=== PATIENT | female | born 1970 | race Caucasian/White ===

== ENCOUNTER 2022-04-08 06:33 | Day surgery (SDC) | payer MEDICAID, SELFPAY ==
[2022-04-08] VITALS (11 sets, daily range): BP systolic 104–155; BP diastolic 64–101; PULSE 59–89; RESP 16–18; TEMP 36.2–36.6; O2SAT 96–100; BMI 37.3
[2022-04-08] MEDS: SODIUM CHLORIDE 0.9 % (FLUSH) 10 ML SYRINGE IVF (06:50)
[2022-04-08] MEDS: LACTATED RINGERS 1000 ML 1,000 ML 100 ML IV (06:51)
[2022-04-08] MEDS: CEFAZOLIN 2 GM INJ IVP (07:40)
[2022-04-08] MEDS: BUPIVACAINE 0.25% 30 ML INJECTION (08:22)
--- NOTE | 2022-04-08 08:35 | W.ANESCHARGE ---
Anesthesia Charges Start Date/Time Anesthesia Start Date: 04/08/22 Anesthesia Start Time: 07:33 Stop Date/Time Anesthesia Stop Date: 04/08/22 Anesthesia Stop Time: 08:33 Summary Emergency: No
--- NOTE | 2022-04-08 09:20 | W.ANESCHARGE ---
Anesthesia Charges Start Date/Time Anesthesia Start Date: 04/08/22 Anesthesia Start Time: 07:33 Stop Date/Time Anesthesia Stop Date: 04/08/22 Anesthesia Stop Time: 08:33 Summary Emergency: No
--- NOTE | 2022-04-08 09:49 | PM.ORPRC ---
Procedure Note Date of procedure: 04/08/22 Procedure: SURGEON: Huang Leung MD APPLIANCE LINE ASSEMBLER: WENDY Meade PREOPERATIVE DIAGNOSIS: Right knee medial meniscus tear POSTOPERATIVE DIAGNOSIS: Right knee medial meniscus tear NAME OF OPERATION: Right knee arthroscopic partial medial meniscectomy ANESTHESIA: Spinal ESTIMATED BLOOD LOSS: 0 mL COMPLICATIONS: None SPECIMENS: None DRAINS: None PREOPERATIVE ANTIBIOTICS: Ancef 2 gram INDICATIONS: The patient is a 51-year-old female with a history of right for knee medial pain. MRI scan is consistent with a medial meniscus tear. Despite appropriate nonoperative management, including activity modification, antiinflammatories, [id number] pain medication, bracing, physical therapy, and injections they continue to have pain and disability. Operative intervention was offered. The risks, benefits and expected outcomes were discussed in detail. These included but were not limited to: Infection, bleeding, injury to blood vessel or nerve, venous thromboembolism. All questions were answered to their satisfaction. PROCEDURE: Spinal anesthesia was administered. The patient was placed supine on the operating room table. The right lower extremity was prepped and draped in the usual sterile fashion. The limb was exsanguinated with the Eron bandage. The pneumatic tourniquet was inflated to 300 mmHg. A standard anterolateral portal was established. The arthroscope was introduced. The working portal was established anteromedially. Diagnostic arthroscopy was performed with findings as follows: The suprapatellar pouch is normal. Articular surface on the patella shows diffuse grade 2/3 change. Articular surface on the trochlea shows diffuse grade 3 change. The medial gutter is normal. The medial compartment shows diffuse grade 3 change on the medial femoral condyle, grade 2 change on the medial tibial plateau. The medial meniscus has a complex degenerative tear with a large unstable flap. The notch shows the ACL graft to be completely torn. The lateral compartment shows normal articular cartilage on the lateral femoral condyle and lateral tibial plateau. The lateral meniscus is normal. The lateral gutter is normal. The posterior horn and midbody of the medial meniscus was debrided to a stable base using a combination of baskets and sugar through both portals. Unstable chondral flaps on the medial femoral condyle were debrided with the shaver through both portals, taken to a stable base. Arthroscopic instruments were removed, the portal sites were Steri-Stripped closed, the knee was infiltrated with 30 mL of 0.25% Marcaine without epinephrine. A dry dressing was applied, the tourniquet was released. Sponge and needle counts were correct x 2. The patient tolerated the procedure well. There were no apparent complications. They were carefully transferred to the hospital bed and taken to the postanesthesia care unit in satisfactory condition. PLAN: The patient will be discharged to home. They may weightbear as tolerates. Range of motion will be unrestricted. They will follow up in the office next week for a wound check.
== END 2022-04-08 10:08 | disposition home or self-care (01) ==
PROVIDERS: PCP Family Medicine; Visit Provider Orthopaedic Surgery
PROC: (CPT 29870; principal; 2022-04-08 07:45)
DX: M23.221 Derangement of posterior horn of medial meniscus due to old tear or injury, right knee (principal)
CPT/HCPCS: 29881; 01400; J0690; J1100; J1885; J2250; J2400; J2405; J2704; J3010; J3490; J7120

== ENCOUNTER 2022-05-13 07:04 | Outpatient (CLI) | payer MEDICAID, SELFPAY ==
--- OUTSIDE RECORDS SUMMARY | 2022-05-13 07:06 | XMS_ITS | Clinical Summary ---
:1970 Author Organization [facility] [place] [address] Care Team Providers Name Role Phone Taylor Blancas Primary Care Provider Allergies Active Allergy Reactions Severity Noted Date Comments Adhesive Tape Contact Dermatitis 11/20/[address] rips Amoxicillin Yeast Infection 02/11/2016 Etanercept Rash 12/23/2021 Medications Medication Sig Dispensed Refills Start End Status Date Date busPIRone (BUSPAR) 15 Take 15 mg by 60 tablet 1 12/29/19 Active mg tabletIndications: mouth 2 times 20 MIRIAM (generalized daily. anxiety disorder) clonazePAM (KLONOPIN) Take 1 tablet by 30 tablet 0 12/29/19 Active 1 mg mouth at bedtime 20 tabletIndications: if needed for MIRIAM (generalized Anxiety. anxiety disorder) buPROPion (WELLBUTRIN Take 1 tablet by 30 tablet 0 01/03/20 Active XL) 300 mg mouth once 20 Extended-Release daily. tabletIndications: Mood disorder (HC) estradiol-norethindro Take 1 tablet by 0 06/15/20 Active ne acet (AMABELZ; mouth once 20 ACTIVELLA) 0.5-0.1 mg daily. tablet buPROPion (WELLBUTRIN TAKE ONE TABLET 0 06/19/20 Active XL) 150 mg BY MOUTH EVERY 20 Extended-Release DAY ALONG WITH tablet 300MG FOR A TOTAL DAILY DOSE OF 450MG fluconazole Take 1 tablet 3 tablet 0 08/14/19 Acti ve (DIFLUCAN) 150 mg every 3 days for 21 tabletIndications: total of 3 Vaginal candidiasis doses. clobetasol 0.05% Apply topically 60 g 1 04/04/20 Active (TEMOVATE 0.05% to affected 21 OINTMENT) 0.05 % area(s) 2 times ointmentIndications: daily. Psoriasis ondansetron (ZOFRAN) Take 1 Tablet (4 30 Tablet 2 05/28/20 Active 4 mg mg) by mouth 21 tabletIndications: every 8 hours if Migraine with aura needed for and without status Nausea/Vomiting. migrainosus, not intractable Otezla Starter 10 mg 0 10/18/19 Active (4)-20 mg (4)-30 mg 22 (47) DsPk starter pack atorvastatin Take 1 Tablet 90 tablet. 3 12/24/19 Ac tive (LIPITOR) 20 mg (20 mg) by mouth 22 tabletIndications: once daily. Hypercholesteremia albuterol HFA (ProAir Inhale 1-2 Puffs 18 g 11 12/24/19 Active HFA) 90 mcg/actuation by mouth every 4 22 inhalerIndications: hours if needed Mild intermittent for Shortness Of asthma with status Breath. asthmaticus EPINEPHrine (EPIPEN) Inject 0.3 mg 2 Each 1 12/24/19 Active 0.3 mg/0.3 mL intramuscular 22 auto-injectorIndicati one time if ons: Anaphylaxis, needed for initial encounter Allergic Reaction. ibuprofen (ADVIL; Take 1 Tablet 90 tablet. 1 12/24/19 Active MOTRIN) 800 mg (800 mg) by 22 tabletIndications: mouth 3 times Arthralgia, daily if needed unspecified joint for Pain. loratadine (CLARITIN) Take 1 Tablet 90 Tablet 3 12/24/19 Active 10 mg (10 mg) by mouth 22 tabletIndications: once daily. Allergic reaction, sequela omeprazole (PRILOSEC) Take 1 Capsule 90 capsule. 3 12/24/19 Active 40 mg Delayed-Release (40 mg) by mouth 22 capsuleIndications: once daily Chronic GERD before a meal. SUMAtriptan (Imitrex) Take 1 Tablet 12 tablet. 11 12/24/19 Active 50 mg (50 mg) by mouth 22 tabletIndications: 2 times daily if Migraine with aura needed for and without status Migraine. Give migrainosus, not at minimum 2hrs intractable apart. Max Dose: 200mg per 24hrs. metFORMIN (GLUCOPHAGE Take 1 tablet 180 Tablet 3 12/24/19 Active XR) 500 mg once daily for 1 22 Extended-Release week, then tabletIndications: increase to 2 Metabolic syndrome tablets once daily. ketoconazole 2% APPLY TO 0 02/12/20 Acti ve topical (NIZORAL) AFFECTED AREA(S) 22 cream TOPICALLY ONCE DAILY ketoconazole 2% WASH SCALP 3 0 08/30/19 A ctive shampoo (NIZORAL) 2 % TIMES A WEEK 22 shampoo fluocinonide 0.05 APPLY TO 0 08/30/19 Ac tive TOPICAL (LIDEX) 0.05 AFFECTED AREA(S) 22 % external solution TWO TIMES A DAY FOR 2-3 WEEKS THEN 2-3 TIMES PER WEEK OLANzapine (ZYPREXA) Take 5 mg by 0 02/27/20 Active 5 mg tablet mouth at 22 bedtime. triamcinolone 0.025% APPLY TOPICALLY 0 08/30/19 Active topical (ARISTOCORT) TO EARS, PRE AND 22 0.025 % cream POST AURICULAR TWICE A DAY FOR 7-10 DAYS, THEN 2-3 TIMES PER WEEK AFTER THAT cyclobenzaprine Take 1 Tablet 60 Tablet 1 05/12/20 Active (FLEXERIL) 10 mg (10 mg) by mouth 22 tabletIndications: 3 times daily if Muscle spasm needed for Muscle Spasm. cyclobenzaprine Take 1 Tablet 60 tablet. 1 12/24/19 Discontinued (FLEXERIL) 10 mg (10 mg) by mouth 2021 (Reorder tabletIndications: 3 times daily if (E-cancel not Muscle spasm needed for sent)) Muscle Spasm. 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 10/10/2019 Psychoactive substance-induced psychosis, stimulants 0 09/28/2019 Psoriasis 07/30/2018 Hypercholesteremia 08/31/2014 Psoriasis 01/26/2013 Family history of colon cancer 05/27/2011 Gastric ulcer 11/27/2010 Overview: EGD 10/2010 small ulcer ADHD (attention deficit hyperactivity disorder) 2009 Asthma, intermittent Resolved Problems Problem Noted Date Resolved Date Bipolar I disorder, most recent episode (or current) 007 10/23/2015 unspecified Encounters Date Type Specialty Care Team Description 05/11/2022 Refill Taylor Blancas, Refill Request VENKATA (Cyclobenzaprin e 10mg) 03/20/2022 Hospital Encounter Dany Lauren, Ch ronic pain of right MD knee 03/20/2022 Travel 03/18/2022 Office Visit Dany Lauren, Knee Claudine n/problem (Knee MD pain and swelli ng x2 months); Immunization/In jection 03/18/2022 Travel 02/26/2022 Telephone Dany Lauren, ORDER (Andre CAMACHO) from Last 3 Months Immunizations Name Administration Dates Next Due AMB Influenza, IIV3 (Age >=3 05/04/2008 years)(Flu Clinic Only) COVID-19 vaccine (Moderna 10/16/2020, 09/19/2020 100mcg/0.5mL) PF, MDV Hepatitis B (Adult) 08/04/2017, 03/24/2017, 01/23/2017 Influenza, IIV4 03/18/2022, 04/02/2020, 09/30/2019 (Deferred: - Refuses all meds this am), 03/05/2018, 03/04/2017, 04/18/2015, 04/10/2014, 03/05/2011 MMR 03/22/1991, 07/15/1971 Pneumococcal Poly,23-Valent 04/10/2014 (Pneumovax) Td (Age >=7 Years) 05/11/2007 Td, Preservative Free (age >= 7 05/11/2007 Years) Tdap 07/30/2017 Tuberculin (PPD) 02/04/2010 Family History Medical History Relation Name Comments Good Health Father Heart failure Father Hypertension Father Parkinsonism Father Heart Disease Maternal Aunt Heart Disease Maternal Uncle COPD Mother Hypertension Mother Stroke Mother Relation Name Status Comments Brother 1 Brother 2 Alive Brother 3 Alive Brother 4 Alive Brother 5 Alive Daughter Alive Father Alive Maternal Aunt Maternal Grandfather Maternal Grandmother Maternal Uncle Mother Paternal Grandfather Paternal Grandmother Sister 1 Alive Sister 2 Alive Sister 3 Alive Sister 4 Alive Social History Tobacco Use Types Packs/Day Years Used Date Former Smoker Cigarettes 1 30 01/28/1988 - 0 09/26/2021 Smokeless Tobacco: Never Used Tobacco Cessation: Ready to Quit: Yes; C ounseling Given: Yes Alcohol Use Standard Drinks/Week Comments Not Currently 0 (1 standard drink = 0.6 oz pure alcoho l) occasional Alcohol Habits Answer Date Recorded How often do you have a drink containing alcohol? Not asked How many drinks containing alcohol do you have on a typical Not asked day when you are drinking? How often do you have six or more drinks on one occasion? No t asked Comment: occasional 04/15/2018 Sex Assigned at Date Recorded Not on file Obstetrics History Para Term AB IAB SAB Ectopic Multiple Living Live Births 2 1 1 1 1 Date Outcome GA Total Labor/2nd/3rd Weight Sex Delivery Anes PTL Maria Luisa A 1 A5 Name Clin Labor Term 01/26 40w 4.05 kg F Geno 9 9 Tet 0d (8 lb ng off /H 15 oz) owe ll Delivery Location: [facility] Last Filed Vital Signs Vital Sign Reading Time Taken Comments Blood Pressure 130/82 03/18/2022 10:23 AM CDT Pulse 80 03/18/2022 10:23 AM CDT Temperature 37 ??C (98.6 ??F) 11/26/2021 7:22 PM CDT Respiratory Rate 18 03/18/2022 10:23 AM CDT Oxygen Saturation 98% 11/26/2021 7:22 PM CDT Inhaled Oxygen Concentration - - Weight 97.5 kg (215 lb) 03/18/2022 10:23 AM CDT Height 160 cm (5' 3) 06/10/2021 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 Body Mass Index 38.09 06/10/2021 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 Plan of Treatment Health Maintenance Due Date Last Done Comments Pneumococcal series for age 19-64 04/10/2015 04/10/2014 (2 - PCV) Colonoscopy through age 75 2015 Mammogram for age 45-[address] (for lung CA) age 1206/21/2020 50-80 Zoster (shingles) series for age 1206/21/2020 50+ (1 of 2) Depression screening for age 12+ 01/07/2022 01/07/2021, , 12/20/2019, Additional history exists COVID-19 vaccine series (4 - 04/11/2022 02/14/2022, 021, Booster for Moderna series) 09/19/2020 BMI (ht and wt on same day) for 06/10/2022 06/10/2021, 02/27, age 18+ 03/01/2019, Additional history exists Pap test for age 21-65 02/27/2023 02/28/2020, 02/28/2020, 03/02/2015 Lipids for age 45-75 12/23/2026 12/23/2021, 09/30/2019, 11/11/2018, Additional history exists Tetanus booster 07/30/2027 07/30/2017, 05/11/2007, 05/11/2007 Tdap Completed 07/30/2017 Hepatitis C screening for age Completed 07/11/2021 18-79 Influenza for age 50-64 Completed 03/18/2022, 04/02/2020, 03/05/2018, Additional history exists Procedures Procedure Name Priority Date/Time Associated Diagnosis Comme nts MR KNEE RIGHT WO Routine 03/20/2022 8:40 AM Chronic pain of Re sults for this CDT right knee procedure are i n the results section. from Last 3 Months Results MR KNEE RIGHT WO (03/20/2022 8:40 AM CDT) Anatomical Region Laterality Modality KNEE R Magnetic Resonance Specimen (Source) Anatomical Collection Method Collection Time Re ceived Time Location / / Volume Laterality 03/20/2022 2:56 PM CDT Impressions 03/20/2022 2:56 PM CDT 1. Prior ACL reconstruction. No clearly intact graft fibers are identified and the graft is likely disrupted. 2. Medial meniscal tear with paramenisca l cysts. 3. Tricompartmental articular cartilage wear. 4. Small knee joint effusion with mild s ynovitis and small popliteal cyst. 5. Mild bone marrow edema within the med ial aspect of the medial tibial plateau, without fracture. Dictated by Orlin Ruth MD @ 022 12:36:36 PM (Electronically Signed) Narrative 03/20/2022 2:56 PM CDT For Patients: ??As a result of the Century Cures Act, medical imaging exams and procedure report s are released immediately into your [facility] medical record. ??You may view this report before your referring provider. ??If you have questions, please contact your health care provider. HISTORY: Right knee pain. TECHNIQUE: Noncontrast MRI of the right knee. COMPARISON: Radiographs 06/06/2020. FINDINGS: Medial compartment: Medial meniscus: There is horizontal und ersurface meniscal tearing within the posterior horn of the medial meniscus extending to junction with posterior aspect of body of meniscus. Small parameniscal cy sts are present about the periphery of t he meniscus. Meniscal tearing is well seen on sagittal T2 fat-sat images #16 through 19 of series 9 for example. The inner aspect of the meniscus appears frayed. Anterior horn of meniscus intact. Articular cartilage: High-grade chondrom alacia of the anterior central medial femoral condyle on sagittal T2 fat-sat image #16 of series 9 (grade 3). Mild medial tibial plateau articular cartilage wear (grade 2). - Lateral compartment: Lateral meniscus: Intact. Articular cartilage: Mild marginal osteo phyte formation. Mild lateral compartment articular cartilage wear (grade 1/2). - Patellofemoral compartment: Mild margina l osteophyte formation. High-grade cartilage loss within the trochlea (grade 3). High-grade cartilage loss involving the patellar articular surface (grade 3). - Ligaments: Patient is status post ACL re construction. No clearly intact graft fibers are present and the graft is likely disrupted. The posterior cruciate ligament is intact. Medial collateral ligament is intact. Lateral collateral complex intact. - Extensor mechanism: Distal quadriceps te ndon intact. Patellar tendon intact. Medial and lateral patellar restraints intact. No patellar subluxation or wallace. - Joint space: Small joint effusion with m ild synovitis. - Bones and soft tissues: Bone marrow lona a involves the medial aspect of the medial tibial plateau, without fracture. Small popliteal cyst. No soft tissue mass. Procedure Note Orlin Ruth MD - 2 For Patients: As a result of the ntury Cures Act, medical imaging exams and procedure reports are released immediately into your electronic medical record. You may view this report before your referring provider. If you have questions, please contact yo health care provider. HISTORY: Right knee pain. TECHNIQUE: Noncontrast MRI of the right knee. COMPARISON: Radiographs 06/06/2020. FINDINGS: Medial compartment: Medial meniscus: There is horizontal und ersurface meniscal tearing within the posterior horn of the medial meniscus extending to junction with posterior aspect of body of meniscus. Small parameniscal cysts are present about the periphery of the meniscus. Men iscal tearing is well seen on sagittal T2 fat-sat images #16 through 19 of series 9 for example. The inner aspect of the meniscus appears frayed. Anterior horn of meniscus intact. Articular cartilage: High-grade chondrom alacia of the anterior central medial femoral condyle on sagittal T2 fat-sat image #16 of series 9 (grade 3). Mild medial tibial plateau articular cartilage wear (grade 2). - Lateral compartment: Lateral meniscus: Intact. Articular cartilage: Mild marginal osteo phyte formation. Mild lateral compartment articular cartilage wear (grade 1/2). - Patellofemoral compartment: Mild margina l osteophyte formation. High-grade cartilage loss within the trochlea (grade 3). High-grade cartilage loss involving the patellar articular surface (grade 3). - Ligaments: Patient is status post ACL re construction. No clearly intact graft fibers are present and the graft is likely disrupted. The posterior cruciate ligament is intact. Medial collateral ligament is intact. Lateral collateral complex intact. - Extensor mechanism: Distal quadriceps te ndon intact. Patellar tendon intact. Medial and lateral patellar restraints intact. No patellar subluxation or wallace. - Joint space: Small joint effusion with m ild synovitis. - Bones and soft tissues: Bone marrow lona a involves the medial aspect of the medial tibial plateau, without fracture. Small popliteal cyst. No soft tissue mass. IMPRESSION: 1. Prior ACL reconstruction. No clearly intact graft fibers are identified and the graft is likely disrupted. 2. Medial meniscal tear with paramenisca l cysts. 3. Tricompartmental articular cartilage wear. 4. Small knee joint effusion with mild s ynovitis and small popliteal cyst. 5. Mild bone marrow edema within the med ial aspect of the medial tibial plateau, without fracture. Dictated by Orlin Ruth MD @ 022 12:36:36 PM (Electronically Signed) aDny Lauren MD MR from Last 3 Months Insurance Payer Benefit Plan / Subscriber ID Effective Dates Phone Addre ss Type Group WC WORKERS COMP WC [facility] [id number] 2020-Presen [address] [place] [address] [facility] [employer] [id number] 2021-Present [address] [place] [address] Lashay Welch Workers Comp Self 1970 [address] (Home) [place] [id number] Advance Directives Latest Code Status on File Code Status Date Activated Date Inactivated Comments Full Code 12/21/2019 1:29 AM 01/02/2020 3:18 PM Code Status Discussion: Not Discussed Full Code 09/27/2019 10:53 PM 10/13/2019 11:59 AM Care Teams Pi/Senior Research Associate Relationship Specialty Start Date End Date Taylor Blancas PA PCP - General Physician Drug Safety Coordinator 09/30/18 [address] [place] [id number]
--- NOTE | 2022-05-13 07:15 | MR_ITS ---
[address] [address] Phone:?[phone] Fax:?[phone] Referring Physician Information: Aj Reed [address] [facility] [address] Phone:?[phone] Fax:?[phone] Patient:?Lashay Welch D.O.B:?1970 Sex:?Female Phone:?[phone] [facility] MRN:?[id number] Exam Date:?05/13/2022 ? EXAM: MRI of the LEFT KNEE, without contrast CLINICAL INFORMATION: Female, 51 years old, with knee pain INDICATION: Evaluate medial and lateral meniscus and ACL PRIOR SURGERY: None reported. PLAIN FILMS: None available. COMPARISONS: No prior MRIs available. TECHNICAL INFORMATION: Using a 1.5T MR scanner and a localizing surface coil: sagittals: PD, PDFS coronals: PD, T2FS axials: PD, PDFS SEDATION: None CONTRAST: None FINDINGS: Knee joint: Effusion: Small left knee effusion. Popliteal cyst: Small popliteal cyst without evidence of rupture Loose bodies: None. Subcutaneous and extra-articular soft tissues: Unremarkable. Ligaments: ACL: Intact ACL anteromedial and posterolateral bundles, without sprain or tear. PCL: Intact PCL, without acute or chronic injury. MCL: Intact MCL superficial and deep layers, without injury. LCL: Intact LCL, without injury. Posterolateral corner: No posterolateral corner soft tissue injury. Popliteus, biceps femoris, iliotibial band, popliteofibular ligament and lateral gastrocnemius are intact. Posteromedial corner: No posteromedial corner soft tissue injury. Semimembranosus, pes anserine tendons and posterior oblique ligament are without injury, tendinopathy or bursitis. Extensor mechanism: Patellar tendon: Intact, without tendinopathy. Quadriceps tendon: Intact, without tendinopathy. Retinacula: Medial and lateral retinacula are intact. Fat pads: Unremarkable infrapatellar Hoffa's, quadriceps and prefemoral fat pads. Medial compartment: Medial meniscus: Medial meniscus is abnormal in appearance with complex tearing along the posterior horn extending to the level of the posterior root over a length of approximately 1.4 cm with horizontal undersurface and confluent intrasubstance components (sagittal series 6 image 11-13). Intermediate to high- grade radial tearing of the posterior root with a displaced flap of meniscal tissue extending centrally toward the intercondylar notch measuring approximately 8 mm (sagittal series 6 images 12-14). Tearing results in 5 mm peripheral meniscal extrusion at the level of the body. Medial femoral condyle: Diffuse grade 2 chondral thinning of the medial femoral condyle central weightbearing surface. Medial tibial plateau: Grade III chondromalacia along the central weightbearing surface with minimal marrow edema measuring 15 x 9 mm. Lateral compartment: Lateral meniscus: No articular surface, meniscosynovial junction or root tear. No displacement, extrusion or parameniscal cyst. Lateral femoral condyle: No chondromalacia or osteochondral abnormality. Lateral tibial plateau: Grade II chondromalacia and heterogeneity along the weightbearing surface of the lateral tibial plateau. Patellofemoral joint: Patella: Grade II/III chondromalacia lateral patellar facet measuring 13 x 9 mm (axial series 4 image 11). Trochlea: Grade II/III chondromalacia of the superior medial trochlea measuring 9 x 7 mm. Proximal tibiofibular joint: Unremarkable, without evidence of ligament sprain injury, joint effusion or adjacent marrow edema. Bones: No stress/occult fractures or other marrow edema/pathology. Small region of PD signal hyperintensity in the proximal fibula suggestive for benign chondral lesion. IMPRESSION: 1. Tearing along the posterior horn and posterior root of the medial meniscus. Intermediate to high-grade radial tearing of the posterior root with displaced flap of meniscal tissue extending toward the intercondylar notch. Resulting 5 mm peripheral meniscal extrusion at the level of the body. 2. Tricompartmental chondromalacia with grade 2 and grade 3 chondral thinning as described above. 3. No lateral meniscus tear. 4. No cruciate or collateral ligament sprain/tear. 5. Small knee joint effusion. Small popliteal cyst. KME Electronically signed on 05/13/2022 7:34:00 PM by Kimberly Clemons M.D.
== END 2022-05-13 07:05 | disposition home or self-care (01) ==
LOC: MRI 07:05
PROVIDERS: PCP Family Medicine; Visit Provider Physician Assistant
DX: M25.562 Pain in left knee (principal); M23.222 Derangement of posterior horn of medial meniscus due to old tear or injury, left knee; M94.262 Chondromalacia, left knee; M25.462 Effusion, left knee
CPT/HCPCS: 73721

== ENCOUNTER 2022-09-04 05:58 | Day surgery (SDC) | payer MEDICAID, SELFPAY ==
[2022-09-04] VITALS (10 sets, daily range): BP systolic 98–146; BP diastolic 71–87; PULSE 67–77; RESP 18–20; TEMP 36.3–36.4; O2SAT 93–100; BMI 38.9
--- NOTE | 2022-09-04 06:12 | SUR.PREOP ---
Patient provided home covid negative results to RN.
[2022-09-04] MEDS: SODIUM CHLORIDE 0.9 % (FLUSH) 10 ML SYRINGE IVF (06:45)
[2022-09-04] MEDS: LACTATED RINGERS 1000 ML 1,000 ML 100 ML IV ×4 (06:45→09:13)
--- NOTE | 2022-09-04 07:07 | W.ANESCHARGE ---
Anesthesia Charges Start Date/Time Anesthesia Start Date: 09/04/22 Anesthesia Start Time: 07:25 Stop Date/Time Anesthesia Stop Date: 09/04/22 Anesthesia Stop Time: 09:02
[2022-09-04] MEDS: CEFAZOLIN 2 GM INJ IVP (07:45)
--- NOTE | 2022-09-04 07:54 | W.ANESCHARGE ---
Anesthesia Charges Start Date/Time Anesthesia Start Date: 09/04/22 Anesthesia Start Time: 07:25 Stop Date/Time Anesthesia Stop Date: 09/04/22 Anesthesia Stop Time: 09:02
--- NOTE | 2022-09-04 08:49 | PM.ORPRC ---
Procedure Note Date of procedure: 09/04/22 Procedure: PREOPERATIVE DIAGNOSIS: Left knee medial meniscus root tear POSTOPERATIVE DIAGNOSIS: Left knee medial meniscus root tear NAME OF OPERATION: Left knee arthroscopic medial meniscus root repair SURGEON: Huang Leung MD CRM BUSINESS ANALYST: Katlyn Hernández PA-C ANESTHESIA: Spinal ESTIMATED BLOOD LOSS: 0 mL COMPLICATIONS: None SPECIMENS: None DRAINS: None PREOPERATIVE ANTIBIOTICS: Ancef 2 gram INDICATIONS: The patient is a 52-year-old female with a history of left knee medial pain. MRI scan is consistent with a medial meniscus root tear. Despite appropriate nonoperative management, including activity modification, antiinflammatories, [id number]-zliqsuh pain medication, bracing, physical therapy, and injections they continue to have pain and disability. Operative intervention was offered. The risks, benefits and expected outcomes were discussed in detail. These included but were not limited to: Infection, bleeding, injury to blood vessel or nerve, venous thromboembolism. All questions were answered to their satisfaction. PROCEDURE: Spinal anesthesia was administered. The patient was placed supine on the operating room table. The left lower extremity was prepped and draped in the usual sterile fashion. The limb was exsanguinated with the Eron bandage. The pneumatic tourniquet was inflated to 300 mmHg. A standard anterolateral portal was established. The arthroscope was introduced. The working portal was established anteromedially. Diagnostic arthroscopy was performed with findings as follows: The suprapatellar pouch is normal. Articular surface on the patella shows diffuse grade 2 change. Articular surface on the trochlea shows focal grade 3 change centrally. The medial gutter is normal. The medial compartment shows diffuse grade 3 change on the medial femoral condyle, grade 2 change on the medial tibial plateau with a small, focal area of grade 4 change at the midbody of the medial meniscus. The medial meniscus has a tear of the root, completely detaching it from the tibia. The notch shows the ACL to be intact. The lateral compartment shows normal articular cartilage on the lateral femoral condyle and lateral tibial plateau. The lateral meniscus is normal. The lateral gutter is normal. The insertion of the root was debrided with the shaver.. Unstable chondral flaps on the medial femoral condyle, lateral tibial plateau, femoral trochlea and patella were debrided with the shaver through both portals, taken to a stable base. The knee scorpion was used to pass a fiber link x 2 in the posterior horn of the medial meniscus. The tibial drill guide was used over the footprint of the root. A longitudinal incision over the anteromedial face of the tibia was placed. The flip cutter was drilled into the footprint. The flip cutter was flipped and back cut 5 mm. It was removed and exchanged for a fiber stick. The fiber stick was brought out the anteromedial portal and was used to shuttle both of the fiber link luggage tag sutures on the posterior horn out the anteromedial tibia. We then tensioned the sutures and fixed them to the tibia with a SwiveLock anchor. This provided an excellent repair of the posterior tibial attachment of the medial meniscus to its anatomic footprint. Arthroscopic instruments were removed, the portal sites were Steri-Stripped closed, the incision over the tibia was closed with 3-0 Vicryl and 4-0 Monocryl, the knee was infiltrated with 30 mL of 0.25% Marcaine without epinephrine. A dry dressing was applied, the tourniquet was released. Sponge and needle counts were correct x 2. The patient tolerated the procedure well. There were no apparent complications. They were carefully transferred to the hospital bed and taken to the postanesthesia care unit in satisfactory condition. PLAN: The patient will be discharged to home. They will be protected weight-bearing on the lower extremity for 6 weeks postoperatively. Range of motion will be unrestricted, no deep squatting for 3 months. They will follow up in 2 weeks for a wound check.
[2022-09-04] MEDS: BUPIVACAINE 0.25% 30 ML INJECTION (08:51)
--- NOTE | 2022-09-04 09:10 | SUR.PHASEI ---
PA here and placed knee brace on pts left knee
--- NOTE | 2022-09-04 09:11 | W.PM.NB ---
Nerve Block Nerve Block Time Seen by Provider: 08:54 Date Seen: 09/04/22 Side: left Procedure Decadron (mg): 5 Precedex (mcg): 25
[2022-09-04] MEDS: OxyCODONE/APAP 5-325 TABLET 1 TAB PO (10:10)
== END 2022-09-04 10:25 | disposition home or self-care (01) ==
PROVIDERS: PCP Family Medicine; Visit Provider Orthopaedic Surgery
PROC: (CPT 29882; principal; 2022-09-04 07:15)
DX: S83.242A Other tear of medial meniscus, current injury, left knee, initial encounter (principal)
CPT/HCPCS: 29881; 01400; 97116; 97161; A9270; C1713; J0690; J1100; J2250; J2400; J2405; J2704; J2795; J3010; J3490; J7120; L1833

== ENCOUNTER 2023-03-25 15:09 | Outpatient (CLI) | payer MEDICAID, SELFPAY ==
--- NOTE | 2023-03-25 15:30 | MR_ITS ---
[address] [address] Phone:?[phone] Fax:?[phone] Referring Physician Information: Aj Reed [address] [facility] [address] Phone:?[phone] Fax:?[phone] Patient:?Lashay Welch D.O.B:?1970 Sex:?Female Phone:?[phone] [facility] MRN:?[id number] Exam Date:?03/25/2023 EXAM: MRI of the LEFT KNEE, without contrast CLINICAL HISTORY: Left knee pain. Evaluate posterior root repair of the medial meniscus. COMPARISONS: MRI 05/13/2022. TECHNICAL: MR sequences of the left knee: sagittals: PD, PDFS coronals: PD, T2FS axials: PD, PDFS CONTRAST: None SEDATION: None FINDINGS: Bones: No fracture or destructive osseous lesion is seen. A probable small enchondroma within the proximal fibula is unchanged compared to previous MRI 05/13/2022. 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 Retinacula: The medial and lateral retinacula are intact. Fat pads: The infrapatellar, quadriceps, and prefemoral fat pads are unremarkable. Knee joint: Effusion: Moderate left knee joint effusion. Popliteal cyst: Small popliteal cyst. Intra-articular bodies: None. Posteromedial corner: The semimembranosus and pes anserine tendons are intact. Medial compartment: Medial meniscus: There are surgical changes status post posterior root repair of the medial meniscus. Attenuation and marked ill-definition of the posterior root at the site of surgical repair and 4 mm of medial meniscal extrusion are findings consistent with high-grade tearing of the postoperative posterior root. Cartilage: Extensive near full-thickness chondral loss over most of the weightbearing portion of the medial femoral condyle is mildly to moderately progressed compared to previous MRI 05/13/2022. Full-thickness chondral loss over the peripheral portion of the medial tibial plateau with subjacent subchondral cystic change does not appear changed compared to previous MRI 05/13/2022. Lateral compartment: Lateral meniscus: Free edge fraying of the body of the lateral meniscus is similar compared to previous MRI 05/13/2022. No unstable lateral meniscal tear is seen. Cartilage: Focal grade II to III chondromalacia over the most posterior portion of the lateral tibial plateau does not appear significantly changed compared to previous MRI 05/13/2022. Ligaments: Anterior cruciate ligament: Intact. Posterior cruciate ligament: Intact. Medial collateral ligament: Intact. Posterior oblique ligament: Intact. Fibular collateral ligament: Intact. Posterolateral corner: The distal biceps femoris tendon, iliotibial band, popliteus tendon, popliteus muscle, popliteofibular ligament, and arcuate ligament are intact. Extensor mechanism: Patellar tendon: Intact. Quadriceps tendon: Intact. IMPRESSION: 1. Surgical changes status post posterior root repair of the medial meniscus. Attenuation and marked ill-definition of the posterior root of the medial meniscus at the site of surgical repair and 4 mm of medial meniscal extrusion are findings consistent with high-grade tearing of the postoperative posterior root. 2. Extensive near full-thickness chondral loss over most of the weightbearing portion of the medial femoral condyle, mildly to moderately progressed compared to previous MRI 05/13/2022. Full-thickness chondral loss over the peripheral portion of the medial tibial plateau with subjacent subchondral cystic change, unchanged compared to previous MRI 05/13/2022. 3. 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 4. Focal grade II to III chondromalacia over the most posterior portion of the lateral tibial plateau, unchanged compared to previous MRI 05/13/2022. 5. Free edge fraying of the body of the lateral meniscus, similar compared to previous MRI 05/13/2022. No unstable lateral meniscal tear. 6. Moderate left knee joint effusion. Small popliteal cyst. 7. No ligamentous injury of the left knee. RCB Electronically signed on 03/26/2023 9:10:00 AM by Eleazar Martell M.D.
== END 2023-03-25 15:10 | disposition home or self-care (01) ==
LOC: MRI 15:09
PROVIDERS: PCP Family Medicine; Visit Provider Physician Assistant
DX: M25.562 Pain in left knee (principal); S83.242A Other tear of medial meniscus, current injury, left knee, initial encounter; M17.12 Unilateral primary osteoarthritis, left knee; M22.42 Chondromalacia patellae, left knee; M25.462 Effusion, left knee; Z98.890 Other specified postprocedural states
CPT/HCPCS: 73721

== ENCOUNTER 2023-05-28 06:20 | Day surgery (SDC) | payer MEDICAID, SELFPAY ==
[2023-05-28] VITALS (10 sets, daily range): BP systolic 141–185; BP diastolic 63–96; PULSE 64–95; RESP 16–18; TEMP 36.4–36.5; O2SAT 95–99; BMI 40.0
[2023-05-28] MEDS: BUPIVACAINE 0.5% 30 ML INJECTION (07:12)
[2023-05-28] MEDS: lidocaine HCL 2 % MULTIDOSE 20 ML VIAL INJECTION (07:12)
--- NOTE | 2023-05-28 07:36 | P.ORPRC_ITS ---
Procedure Note Date of procedure: 05/28/23 Procedure: Preop diagnosis: Right upper extremity carpal tunnel syndrome Postop diagnosis: Right upper extremity carpal tunnel syndrome Procedure: Right upper extremity carpal tunnel release Anesthesia: Local Surgeon: Huang Leung MD family practice physician assistant: WENDY Meade EBL: 5 mL Complications: None Specimens: None Drains: None Indications: The patient has a history of right upper extremity carpal tunnel syndrome sympto ms. Despite appropriate nonoperative management consisting of nighttime bracing and occupational therapy they continue to have symptoms. Operative intervention was recommended. The risks, benefits alternatives and expected outcomes were discussed in detail. These included but were not limited to: Infection, bleeding, injury to blood vessel or nerve, venous thromboembolism. All questions were answered to their satisfaction. The patient was placed supine on the operating room table. Local anesthesia was established with 0.5% Marcaine without epinephrine and 2% lidocaine without epinephrine. The hand was prepped and draped in usual sterile fashion. The limb was elevated the forearm pneumatic tourniquet was inflated to 250 mm of mercury. A longitudinal incision was made centered over the radial border of the ring finger at the base of the palm. Subcutaneous dissection was sharply taken through the palmar fascia and the palmaris brevis to the transverse carpal ligament. The ligament was divided in line with the incision. Proximal and distal dissection was carried with tenotomy and Metzenbaum scissors for a wide decompression of the carpal tunnel. The tourniquet was released , bleeding was controlled with direct pressure. The wound was closed with a 3-0 nylon. A bulky dry dressing was applied, sponge and needle counts were correct x 2. The patient tolerated the procedure well, there were no apparent complications. They were sent to same day surgery in satisfactory condition. Plan: Use of the hand as tolerates. Discontinue the intraoperative dressing on postoperative day 3 and may get the wound wet as tolerates. Follow up in the office in 2 weeks for a wound check and suture removal.
== END 2023-05-28 07:59 | disposition home or self-care (01) ==
PROVIDERS: PCP Family Medicine; Visit Provider Orthopaedic Surgery
PROC: (CPT 64721; principal; 2023-05-28 07:15)
DX: G56.01 Carpal tunnel syndrome, right upper limb (principal)
CPT/HCPCS: 64721; J0665

== ENCOUNTER 2023-08-11 14:52 | Outpatient (CLI) | payer MEDICAID, SELFPAY | END 2023-08-11 14:53 | disposition home or self-care (01) | LOC: INJ CL 14:52 | PROVIDERS: PCP Family Medicine; Visit Provider Family Medicine | DX: M17.12 Unilateral primary osteoarthritis, left knee (principal); M25.562 Pain in left knee | CPT/HCPCS: 64454 ==

== ENCOUNTER 2023-08-18 12:10 | Outpatient (CLI) | payer MEDICAID, SELFPAY ==
--- OUTSIDE RECORDS SUMMARY | 2023-08-18 12:12 | XMS_ITS | Clinical Summary ---
Author Name Unknown Organization [facility] Address [place], [place] [address] Care Team Providers Care Car Retarder Operator Name Role Phone Taylor Blancas Primary Care Provider [phone] Allergies Active Allergy Reactions Criticality Noted Date Comments Adhesive Tape Contact Dermatitis 11/20/2006 steri strips Amoxicillin Yeast Infection 02/11/2016 Etanercept Rash 12/23/2021 Medications Medication Sig Dispensed Refills Start Date End Date Status estradiol-norethin drone acet (AMABELZ; ACTIVELLA) 0.5-0.1 mg tablet Take 1 tablet by mouth once daily. 0 06/15/2020 Active buPROPion (WELLBUTRIN XL) 150 mg Extended-Release tablet TAKE ONE TABLET BY MOUTH EVERY DAY ALONG WITH 300MG FOR A TOTAL DAILY DOSE OF 450MG 0 06/19/2020 Active ketoconazole 2% topical (NIZORAL) cream APPLY TO AFFECTED AREA(S) TOPICALLY ONCE DAILY 0 02/11/2022 Active ketoconazole 2% shampoo (NIZORAL) 2 % shampoo WASH SCALP 3 TIMES A WEEK 0 08/29/2021 Active fluocinonide 0.05 TOPICAL (LIDEX) 0.05 % external solution APPLY TO AFFECTED AREA(S) TWO TIMES A DAY FOR 2-3 WEEKS THEN 2-3 TIMES PER WEEK 0 08/29/2021 Active triamcinolone 0.025% topical (ARISTOCORT) 0.025 % cream APPLY TOPICALLY TO EARS, PRE AND POST AURICULAR TWICE A DAY FOR 7-10 DAYS, THEN 2-3 TIMES PER WEEK AFTER THAT 0 08/29/2021 Active busPIRone (BUSPAR) 30 mg tablet Take 30 mg by mouth two times daily. 0 08/12/2022 Active clonazePAM (KLONOPIN) 0.5 mg tablet TAKE 3 TABLETS BY MOUTH AT BEDTIME AND ONE TABLET DURING THE DAY NEEDED FOR ANXIETY. 0 08/18/2022 Active Otezla 30 mg tab tablet 0 08/05/2022 Active SUMAtriptan (Imitrex) 50 mg tabletIndications: Migraine with aura and without status migrainosus, not intractable Take 1 Tablet (50 mg) by mouth 2 times daily if needed for Migraine. Give at minimum 2hrs apart. Max Dose: 200mg per 24hrs. 12 Tablet 0 04/08/2023 Active ondansetron (ZOFRAN) 4 mg tabletIndications: Migraine with aura and without status migrainosus, not intractable TAKE ONE TABLET BY MOUTH EVERY 8 HOURS NEEDED FOR NAUSEA / VOMITING 30 Tablet 2 05/12/2023 Active albuterol HFA (ProAir HFA) 90 mcg/actuation inhalerIndications :Mild intermittent asthma with status asthmaticus Inhale 1-2 Puffs by mouth every 4 hours if needed for Shortness Of Breath. 18 g 11 05/11/2023 Active atorvastatin (LIPITOR) 20 mg tabletIndications: Hypercholesteremia Take 1 Tablet (20 mg) by mouth once daily. 90 Tablet 3 05/11/2023 Active buPROPion (WELLBUTRIN XL) 300 mg Extended-Release tabletIndications: Mood disorder (HC) Take 1 Tablet (300 mg) by mouth once daily. 90 Tablet 3 05/11/2023 Active clobetasol 0.05% (TEMOVATE 0.05% OINTMENT) 0.05 % ointmentIndication s:Psoriasis Apply topically to affected area(s) two times daily. 60 g 1 05/11/2023 Active cyclobenzaprine (FLEXERIL) 10 mg tabletIndications: Muscle spasm Take 1 Tablet (10 mg) by mouth three times daily. 90 Tablet 2 05/11/2023 Active EPINEPHrine (EPIPEN) 0.3 mg/0.3 mL auto-injectorIndic ations:Anaphylaxis , initial encounter Inject 0.3 mg intramuscular one time if needed for Allergic Reaction. 2 Each 1 05/11/2023 Active ibuprofen (ADVIL; MOTRIN) 800 mg tabletIndications: Arthralgia, unspecified joint Take 1 Tablet (800 mg) by mouth 3 times daily if needed for Pain. 90 Tablet 2 05/11/2023 Active loratadine (CLARITIN) 10 mg tabletIndications: Allergic reaction, sequela Take 1 Tablet (10 mg) by mouth once daily. 90 Tablet 3 05/11/2023 Active omeprazole (PRILOSEC) 40 mg Delayed-Release capsuleIndications :Chronic GERD Take 1 Capsule (40 mg) by mouth once daily before a meal. 90 Capsule 3 05/11/2023 Active Active Problems Problem Noted Date Diagnosed Date Melanoma of skin 05/12/2023 Psoriatic arthritis 05/12/2023 Bipolar disorder, mixed 05/12/2023 Sensorineural hearing loss, bilateral 09/25/2020 Mood disorder 12/21/2019 Severe recurrent major depre ssion without psychotic features 10/10/2019 Psychoactive substance-induced psychosis, stimul ants 09/28/2019 Hypercholesteremia 08/31/2014 Psoriasis 01/26/2013 Family history of colon cancer 05/27/2011 Gastric ulcer 11/27/2010 Overview: EGD 10/2010 small ulcer ADHD (attention deficit hyperactivity disorder) 04/16/2010 Asthma, intermittent Resolved Problems Problem Noted Date Diagnosed Date Resolved Date Psoriasis 07/30/2018 05/12/2023 Bipolar I disorder, most rec ent episode (or current) unspecified 11/03/2006 10/23/2015 Encounters Date Type Department Care Team Description 08/14/2023 Telephone [facility] [address] [place] [address] Jeffery Marquez MD Questions (surgery ) 08/12/2023 Telephone [facility] [address] [place] [address] Jeffery Marquez MD 08/11/2023 3:20 PM EPIC SPECIALIST Procedure Only [facility] at [facility] [address] [facility] [place] [id number] Jeffery Marquez MD Procedure (Left knee genicular nerve block ) 08/05/2023 Telephone [facility] [address] [facility] [place] [address] Taylor Blancas PA Medication Management (Manjaro shot) 07/24/2023 Telephone [facility] [address] [place] [address] Taylor Blancas PA Prior Authorization 07/22/2023 3:00 PM EPIC SPECIALIST Office Visit [facility] [address] [place] [address] Jeffery Marquez MD Musculoskeletal Problem (Follow up left knee pain. Patient consulted with Dr. Munoz on 06/30/23) 07/22/2023 Travel 06/30/2023 1:50 PM EPIC SPECIALIST Office Visit [facility] [address] [place] [address] Idris Munoz MD Musculoskeletal Problem (Consultation for LEFT Knee pain. /Had surgery in August 2022. Meniscal Tear) 06/30/2023 Travel 06/23/2023 10:30 AM EPIC SPECIALIST Office Visit [address] [address] Taylor Esquivel AuD Hearing Aid (Ready for excelsior picker) 06/23/[address] [address] Taylor Esquivel [facility] Hearing Aid (Batteries & wax guards) 06/23/[address] [address] Taylor Esquivel [facility] Aid (Ready for excelsior picker at the front desk attendant) 06/23/2023 Travel from Last 3 Months Immunizations Name Administration Dates Next Due AMB Influenza, IIV3 (Age >=3 years)(Flu Clinic Only) 05/04/2008 COVID-19 vaccine (Moderna 100mcg/0.5mL) OXANA BRADLEY 02/14/2022,10/16/2020,09/19/2020 Hepatitis B (Adult) 08/04/2017,03/24/2017,2016 Influenza, IIV4 05/11/2023,,04/02/2020,2019(Deferred: - Refuses all meds this am),03/05/2018,03/04/2017,04/18/2015,,03/05/2011 MMR 03/22/1991,07/15/1971 Pneumococcal Poly,23-Valent (Pneumovax) 04/10/2014 Td (Age >=7 Years) 05/11/2007 Td, Preservative Free (age > = 7 Years) 05/11/2007 Tdap 07/30/2017 Tuberculin (PPD) 02/04/2010 Family History [...] Tobacco Use Types Packs/Day Years Used Date Smoking Tobacco: Every Day Cigarettes 1 33.7 Started: 01/28/1988; Last attempted to quit: 09/26/2021 Smokeless Tobacco: Never Tobacco Cessation:Ready to Q uit: Yes; Counseling Given: Yes Comments:Pt smokes one cig per day, sometimes not at all Alcohol Use Standard Drinks/Week Comments Not Currently 0 (1 standard drink = 0.6 oz pur e alcohol) occasional PHQ-2 Answer Date Recorded PHQ-2 TOTAL SCORE 5 05/11/2023 Social Connections Answer Date Recorded Frequency of Communication with Friends and Fami ly Not on file 12/27/2022 Financial Resource Strain Answer Date R ecorded Difficulty of Paying Living Expenses 3 12/23/2021 Difficulty of Paying Living Expenses Not on file 12/23/2021 Food Insecurity Answer Date Recorded Worried About Running Out of Food in the Last Ye ar 1 12/23/2021 Transportation Needs Answer Date Record ed Lack of Transportation (Medical) 1 12/23/2021 Housing Stability Answer Date Recorded Unable to Pay for Housing in the Last Year 1 12/23/2021 Sex and Gender Information Value Date Recorded Sex Assigned at Not on file Gender Identity Not on file Sexual Orientation Not on file Obstetrics History Para Term AB IAB SAB Ectopic Multiple Livin g Live Births 2 1 1 1 1 Date Outcome GA Total Labor Labor/2nd/3rd Weight Sex Delivery Anes PTL Maria Luisa A1 A5 Name Cl in Term 01/26 40w 0d 4.05 kg (8 lb 15 oz) F Geno ng 9 9 [place] off/[place] Delivery Location:[facility] Last Filed Vital Signs Vital Sign Reading Time Taken Comments Blood Pressure 116/84 07/22/2023 3:13 PM EPIC SPECIALIST Pulse 87 07/22/2023 3:13 PM EPIC SPECIALIST Temperature 36.8 ??C (98.2 ??F) 07/22/2023 3:13 PM CS T Respiratory Rate 18 11/27/2022 6:08 PM CDT Oxygen Saturation 95% 07/22/2023 3:13 PM EPIC SPECIALIST Inhaled Oxygen Concentration - - Weight 102.5 kg (226 lb) 07/22/2023 3:13 PM EPIC SPECIALIST shoes on Height 160.6 cm (5' 3.23) 05/11/2023 1:03 PM CS T Body Mass Index 39.75 05/11/2023 1:03 PM EPIC SPECIALIST Plan of Treatment Upcoming Encounters Date Type Department Care Team (Late st Contact Info) Description 08/18/2023 1:00 PM EPIC SPECIALIST Procedure Only [facility] [address] [place] [address] Jeffery Marquez MD [address] [place] [address] Arrived 08/19/2023 2:30 PM EPIC SPECIALIST Office Visit [facility] [address] [place] [address] Dany Lauren MD [address] [place] [address] Health Maintenance Due Date Last Done Comments Pneumococcal series for age 6-64 (2 of 2 - PCV) 04/10/2015 04/10/2014 Colonoscopy through age 75 2015 Mammogram for age 45-[address] (for lung CA) ag e 50-80 2020 Zoster (shingles) series for age 50+ (1 of 2) 2020 COVID-19 vaccine series ( - 2022- season) 2023 02/14/2022, 10/16/2020, 09/19/2020 BMI (ht and wt on same day) for age 18+ 05/11/2024 05/11/2023, 06/10/2021, 03/08/2019, Additional history exists Depression screening for age 12+ 05/11/2024 05/11/2023, 05/11/2023, 01/07/2021, Additional history exists Pap test for age 21-65 08/08/2025 , 08/08/2022, 02/28/2020, Additional history exists Tetanus booster 07/30/2027 07/30/2017, 04/29, 05/11/2007 Lipids for age 45-75 05/11/2028 05/11/2023, 12/23/2021, 09/30/2019, Additional history exists Tdap Completed 07/30/2017 Hepatitis C screening for ag e 18-79 Completed 07/11/2021 HIV for age 15-65 Completed 05/11/2023 Influenza for age 50-64 Completed 05/11/20, 03/18/2022, 04/02/2020, Additional history exists Advance Directives Latest Code Status on File Code Status Date Activated Date Inactivated Comments Full Code 12/21/2019 1:29 AM 01/02/2020 3:18 PM Question Answer Comments Code Status Discussion: Not Discussed Code Status History Code Status Date Activated Date Inactivated Comments Full Code 09/27/2019 10:53 PM 10/13/2019 11:59 AM Care Teams Car Retarder Operator Relationship Specialty Start Date End Date Taylor Blancas PA [address] [place] [address] PCP - General Physician Beamer Operator 05/11/23
== END 2023-08-18 12:11 | disposition home or self-care (01) ==
LOC: INJ CL 12:11
PROVIDERS: PCP Family Medicine; Visit Provider Family Medicine
DX: M17.12 Unilateral primary osteoarthritis, left knee (principal); M25.562 Pain in left knee; G89.29 Other chronic pain
CPT/HCPCS: 64624; J2250; J3010

== ENCOUNTER 2023-08-25 14:21 | Outpatient (CLI) | payer MEDICAID, SELFPAY | END 2023-08-25 14:22 | disposition home or self-care (01) | LOC: INJ CL 14:22 | PROVIDERS: PCP Family Medicine; Visit Provider Family Medicine | DX: M17.11 Unilateral primary osteoarthritis, right knee (principal); M25.561 Pain in right knee | CPT/HCPCS: 64454 ==

== ENCOUNTER 2023-09-01 13:10 | Outpatient (CLI) | payer MEDICAID, SELFPAY | END 2023-09-01 13:11 | disposition home or self-care (01) | LOC: INJ CL 13:11 | PROVIDERS: PCP Family Medicine; Visit Provider Family Medicine | DX: M17.11 Unilateral primary osteoarthritis, right knee (principal); M25.561 Pain in right knee; G89.29 Other chronic pain | CPT/HCPCS: 64624; J2250; J3010 ==

== ENCOUNTER 2024-01-26 11:15 | Outpatient (CLI) | payer MEDICAID, SELFPAY ==
--- OUTSIDE RECORDS SUMMARY | 2024-01-26 11:18 | XMS_ITS | Clinical Summary ---
Author Organization [facility] Address [place], [place] [address] Care Team Providers Care Maintenance Repairer Name Role Phone Taylor Blancas Primary Care Provider [phone] Allergies Active Allergy Reactions Criticality Noted Date Comments Adhesive Tape Contact Dermatitis 11/20/2006 steri strips Amoxicillin Yeast Infection 02/11/2016 Etanercept Rash 12/23/2021 Medications Medication Sig Dispensed Refills Start Date End Date Status buPROPion (WELLBUTRIN XL) 150 mg Extended-Release tablet TAKE ONE TABLET BY MOUTH EVERY DAY ALONG WITH 300MG FOR A TOTAL DAILY DOSE OF 450MG 06/19/2020 Active ketoconazole 2% topical (NIZORAL) cream once daily if needed for Dry Scalp. 02/11/2022 Active ketoconazole 2% shampoo (NIZORAL) 2 % shampoo once daily if needed for Dry Scalp. 08/29/2021 Active fluocinonide 0.05 TOPICAL (LIDEX) 0.05 % external solution once daily if needed. 08/29/2021 Active triamcinolone 0.025% topical (ARISTOCORT) 0.025 % cream APPLY TOPICALLY TO EARS, PRE AND POST AURICULAR TWICE A DAY FOR 7-10 DAYS, THEN 2-3 TIMES PER WEEK AFTER THAT 08/29/2021 Active busPIRone (BUSPAR) 30 mg tablet Take 30 mg by mouth two times daily. 08/12/2022 Active clonazePAM (KLONOPIN) 0.5 mg tablet TAKE 3 TABLETS BY MOUTH AT BEDTIME AND ONE TABLET DURING THE DAY NEEDED FOR ANXIETY. 08/18/2022 Active Otezla 30 mg tab tablet 08/05/2022 Active SUMAtriptan (Imitrex) 50 mg tabletIndications :Migraine with aura and without status migrainosus, not intractable Take 1 Tablet (50 mg) by mouth 2 times daily if needed for Migraine. Give at minimum 2hrs apart. Max Dose: 200mg per 24hrs. 12 Tablet 04/08/2023 Active ondansetron (ZOFRAN) 4 mg tabletIndications :Migraine with aura and without status migrainosus, not intractable TAKE ONE TABLET BY MOUTH EVERY 8 HOURS NEEDED FOR NAUSEA / VOMITING 30 Tablet 2 05/12/2023 Active albuterol HFA (ProAir HFA) 90 mcg/actuation inhalerIndication s:Mild intermittent asthma with status asthmaticus Inhale 1-2 Puffs by mouth every 4 hours if needed for Shortness Of Breath. 18 g 11 05/11/2023 Active atorvastatin (LIPITOR) 20 mg tabletIndications :Hypercholesterem ia Take 1 Tablet (20 mg) by mouth once daily. 90 Tablet 3 05/11/2023 Active buPROPion (WELLBUTRIN XL) 300 mg Extended-Release tabletIndications :Mood disorder (HC) Take 1 Tablet (300 mg) by mouth once daily. 90 Tablet 3 05/11/2023 Active clobetasol 0.05% (TEMOVATE 0.05% OINTMENT) 0.05 % ointmentIndicatio ns:Psoriasis Apply topically to affected area(s) two times daily. 60 g 1 05/11/2023 Active EPINEPHrine (EPIPEN) 0.3 mg/0.3 mL auto-injectorIndi cations:Anaphylax is, initial encounter Inject 0.3 mg intramuscular one time if needed for Allergic Reaction. 2 Each 1 05/11/2023 Active loratadine (CLARITIN) 10 mg tabletIndications :Allergic reaction, sequela Take 1 Tablet (10 mg) by mouth once daily. 90 Tablet 3 05/11/2023 Active omeprazole (PRILOSEC) 40 mg Delayed-Release capsuleIndication s:Chronic GERD Take 1 Capsule (40 mg) by mouth once daily before a meal. 90 Capsule 3 05/11/2023 Active estradioL (ESTRACE) 0.5 mg tablet Take 0.5 mg by mouth once daily. 07/03/2023 Active mupirocin (BACTROBAN OINTMENT) ointment once daily if needed. 11/28/2022 Active progesterone micronized (PROMETRIUM) 100 mg capsule TAKE ONE CAPSULE BY MOUTH EVERY MORNING FOR 3 MONTHS . 06/07/2023 Active benzonatate (TESSALON) 200 mg capsuleIndication s:Acute cough Take 1 Capsule (200 mg) by mouth 3 times daily if needed for Cough. 21 Capsule 10/26/2023 Active guaiFENesin (MUCINEX) 600 mg Extended-Release tabletIndications :Acute viral sinusitis Take two tablets (1200 mg) every morning for sinus congestion and productive cough. 20 Tablet 10/28/2023 Active fluticasone (50 mcg per actuation) nasal solution (FLONASE)Indicati ons:Nasal congestion Inhale 1-2 Sprays to both nostrils two times daily. 48 g 3 12/03/2023 Active cyclobenzaprine (FLEXERIL) 10 mg tabletIndications :Muscle spasm TAKE ONE TABLET BY MOUTH THREE TIMES A DAY 90 Tablet 2 12/04/2023 Active ibuprofen (ADVIL; MOTRIN) 800 mg tabletIndications :Arthralgia, unspecified joint TAKE ONE TABLET BY MOUTH THREE TIMES A DAY NEEDED FOR PAIN 90 Tablet 12/14/2023 Active tirzepatide, weight loss, (Zepbound) 10 mg/0.5 mL penIndications:Cl ass 2 severe obesity with body mass index (BMI) of 35 to 39.9 with serious comorbidity (HC) Inject 10 mg subcutaneous once weekly. 6 mL 3 01/21/2024 Active clindamycin (CLEOCIN) 300 mg capsuleIndication s:Dog bite, subsequent encounter Take 1 Capsule (300 mg) by mouth three times daily for 7 days. 21 Capsule 01/21/2024 4 Active gabapentin (NEURONTIN) 300 mg capsuleIndication s:Primary insomnia,RLS (restless legs syndrome) Take 1 Capsule (300 mg) by mouth at bedtime. 90 Capsule 3 01/21/2024 Active mirtazapine (REMERON) 7.5 mg tablet Take 7.5 mg by mouth at bedtime. 07/21/2023 4 Discontinu ed(*Med complete/R egimen complete/L evel of care change) OLANzapine (ZYPREXA) 2.5 mg tablet TAKE ONE TABLET BY MOUTH AT BEDTIME WITH 5MG FOR A TOTAL DOSE OF 7.5MG 08/08/2023 4 Discontinu ed(*Med complete/R egimen complete/L evel of care change) tirzepatide, weight loss, (Zepbound) 10 mg/0.5 mL penIndications:Cl ass 2 severe obesity with body mass index (BMI) of 35 to 39.9 with serious comorbidity (HC) Inject 0.5 mL (10 mg) subcutaneous once weekly. 6 mL 1 12/10/2023 4 Discontinu ed(Reorder (E-cancel not sent)) doxycycline 100 mg capsuleIndication s:Dog bite, initial encounter Take 1 Capsule (100 mg) by mouth two times daily. 10 Capsule 01/19/2024 4 Discontinu ed(*Medica tion adjustment ) Active Problems Problem Noted Date Diagnosed Date Primary osteoarthritis of right knee 09/05/2023 Overview: August 2023: Coolief procedure. Mild intermittent asthma with status asthmaticus 08/19/2023 Melanoma of skin 05/12/2023 Psoriatic arthritis 05/12/2023 [...] Encounters Date Type Department Care Team Description 01/21/2024 2:30 PM CDT Phone Office Visit [facility] [address] [place] [address] Taylor Blancas PA Medication Management (/Vomited ABO for dog bite/Sleep issue/lipids/labs/me dications/) 01/21/2024 Travel 01/21/2024 Nurse Triage [facility] [address] [place] [address] Taylor Blancas PA Vomiting 01/20/2024 3:00 PM CDT Office Visit [facility] [address] [place] [address] Sheila Cruz NP Bleeding (from stitches Left are) 01/19/2024 3:00 PM CDT - 01/19/2024 4:45 PM CDT Emergency [facility] [address] [place] [address] Wallace Bunn PA Dog bite, initial encounter (Primary Dx) Discharge Disposition: Home Self Care 01/19/2024 Travel 12/21/2023 Telephone [facility] [address] [place] [address] Taylor Blancas PA 12/18/2023 Telephone [facility] [address] [place] [address] Taylor Blancas PA Prior Authorization (tirzepatide, weight loss, (Zepbound) 10 mg/0.5 mL pen Approved December 21, 2023 to December 20, 2024); return call (Call back current weight ) 12/12/2023 Refill [facility] [address] [place] [address] Taylor Blancas PA Refill Request (Ibuprofen) 12/03/2023 Refill [facility] [address] [place] [address] Taylor Blancas PA Refill Request (Cyclobenzaprine) 11/30/2023 Refill [facility] [address] [place] [address] Taylor Blancas PA Refill Request (Fluticasone (50 Mcg Per Actuation) Nasal) 10/30/2023 Refill [facility] [address] [place] [address] Taylor Blancas PA Refill Request (Ibuprofen) 10/28/2023 1:00 PM CDT Telemedicine [facility] [address] [place] [address] Jerome Davison, ARNOLD Cough (Productive Cough); Sinus Problem 10/28/2023 Telephone [facility] [address] [place] [address] Jerome Davison, ARNOLD Work Note from Last 3 Months Immunizations Name Administration Dates Next Due AMB Influenza, IIV3 (Age >=3 years)(Flu Clinic Only) 05/04/2008 COVID-19 vaccine (Moderna 100mcg/0.5mL) PF, MDV 02/14/2022,10/16/2020,09/19/2020 Hepatitis B (Adult) 08/04/2017,03/24/2017,2016 Influenza, IIV4 05/11/2023,,04/02/2020,2019(Deferred: - Refuses all meds this am),03/05/2018,03/04/2017,04/18/2015,,03/05/2011 MMR 03/22/1991,07/15/1971 Pneumococcal Poly,23-Valent (Pneumovax) 04/10/2014 Td (Age >=7 Years) 05/11/2007 Td, Preservative Free (age > = 7 Years) 05/11/2007 Tdap 01/19/2024,07/30/2017 Tuberculin (PPD) 02/04/2010 Family History Medical History [...] Outcome GA Total Labor Labor/2nd/3rd Weight Sex Type Anes PTL Maria Luisa A1 A5 Name Clin Term 996 40w 0d 4.05 kg (8 lb 15 oz) F C-Sec tion Living 9 9 [place]l off/H owell Delivery Location:[facility] Last Filed Vital Signs Vital Sign Reading Time Taken Comments Blood Pressure 124/84 01/21/2024 2:42 PM CDT Pulse 72 01/21/2024 2:42 PM CDT Temperature 36.9 ??C (98.4 ??F) 01/20/2024 3:03 PM CD T Respiratory Rate 18 01/20/2024 3:03 PM CDT Oxygen Saturation 97% 01/21/2024 2:42 PM CDT Inhaled Oxygen Concentration - - Weight 94.5 kg (208 lb 6.4 oz) 01/21/2024 2:42 P M CDT Height 160 cm (5' 3) 01/19/2024 3:07 PM CDT Body Mass Index 36.92 01/19/2024 3:07 PM CDT Plan of Treatment Upcoming Encounters Date Type Department Care Team (Late st Contact Info) Description 01/29/2024 12:50 PM CDT Procedure Only [facility] [address] [facility] [address] Taylor Blancas PA [address] [place] [address] Health Maintenance Due Date Last Done Comments Pneumococcal series for age 6-64 (2 of 2 - PCV) 04/10/2015 04/10/2014 Colonoscopy through age 75 2015 Mammogram for age 45-[address] (for lung CA) ag e 50-80 2020 Zoster (shingles) series for age 50+ (1 of 2) 2020 COVID-19 vaccine series ( season) 2023 02/14/2022, 10/16/2020, 09/19/2020 Influenza for age 50-64 02/28/2024 05/11/20, 03/18/2022, 04/02/2020, Additional history exists Depression screening for age 12+ 05/11/2024 05/11/2023, 05/11/2023, 01/07/2021, Additional history exists BMI (ht and wt on same day) for age 18+ 08/19/2024 08/19/2023, 05/11/2023, 06/10/2021, Additional history exists Pap test for age 21-65 08/08/2025 , 08/08/2022, 02/28/2020, Additional history exists Lipids for age 45-75 01/20/2029 01/21/2024, 05/11/2023, 12/23/2021, Additional history exists Tetanus booster 01/18/2034 01/19/2024, 02/0 06/2017, 05/11/2007, Additional history exists Hepatitis C screening for ag e 18-79 Completed 07/11/2021 HIV for age 15-65 Completed 05/11/2023 Tdap Completed 01/19/2024, 07/30/2017 Procedures Procedure Name Priority Date/Time Associated Diagnosis Comments CBC WITH AUTO DIFFERENTIAL Routine 01/21/2024 3:26 PM CDT RLS (restless legs syndrome) TSH Routine 01/21/2024 3:26 PM CDT RLS (restless legs syndrome) FERRITIN Routine 01/21/2024 3:26 PM CDT RLS (restless legs syndrome) CBC WITH AUTO DIFFERENTIAL Routine 01/21/2024 3:26 PM CDT RLS (restless legs syndrome) LIPID PANEL W REFLEX MEASURED LDL Routine 01/21/2024 3:26 PM CDT Mixed hyperlipidemia LACERATION REPAIR Routine 01/19/2024 4:1 7 PM CDT LACERATION REPAIR Routine 01/19/2024 4:1 4 PM CDT ANTI HIV 1/2 Routine 05/11/2023 2:04 PM BUSINESS DEVELOPMENT COORDINATOR Screening for HIV (human immunodeficiency virus) EXPERIENCE DESIGN DIRECTOR THIN PREP PAP SCREEN IMAGED Routine 08/08/2022 12:00 PM BUSINESS DEVELOPMENT COORDINATOR ANTI HCV Add On 07/11/2021 11:25 AM BUSINESS DEVELOPMENT COORDINATOR Psoriasis from Last 3 Months or Most Recently Relevant to Health Maintenance Results * (ABNORMAL) CBC WITH AUTO DIFFERENTIAL (01/21/2024 3:26 PM CDT) WHITE BLOOD COUNT 8.6 4.5 - 11.0 thou/cu mm 01/21/2024 3:33 PM CDT [facility] RED BLOOD COUNT 4.80 4.00 - 5.20 mil/cu mm 01/21/2024 3:33 PM CDT [facility] HEMOGLOBIN 13.9 12.0 - 16.0 g/dL 01/21/2024 3:33 PM CDT [facility] HEMATOCRIT 41.6 33.0 - 51.0 % 01/21/2024 3:33 PM CDT [facility] MCV 87 80 - 100 fL 01/21/2024 3:33 PM CDT [facility] MCH 29.0 26.0 - 34.0 pg 01/21/2024 3:33 PM CDT [facility] MCHC 33.4 32.0 - 36.0 g/dL 01/21/2024 3:33 PM CDT [facility] RDW 14.7 11.5 - 15.5 % 01/21/2024 3:33 PM CDT [facility] PLATELET COUNT 214 140 - 440 thou/cu mm 01/21/2024 3:33 PM CDT [facility] MPV 11.2(H) 6.5 - 11.0 fL 01/21/2024 3:33 PM CDT [facility] % NEUT 58.0 % 01/21/2024 3:33 PM CDT [facility] % LYMPH 24.9 % 01/21/2024 3:33 PM CDT [facility] % MONO 5.7 % 01/21/2024 3:33 PM CDT [facility] % EOS 11.1 % 01/21/2024 3:33 PM CDT [facility] % BASO 0.3 % 01/21/2024 3:33 PM CDT [facility] ABSOLUTE NEUTROPHILS 5.0 1.7 - 7.0 thou/cu mm 01/21/2024 3:33 PM CDT [facility] ABSOLUTE LYMPHOCYTES 2.1 0.9 - 2.9 thou/cu mm 01/21/2024 3:33 PM CDT [facility] ABSOLUTE MONOCYTES 0.5 <0.9 thou/cu mm 01/21/2024 3:33 PM CDT [facility] ABSOLUTE EOSINOPHILS 1.0(H) <0.5 thou/cu mm 01/21/2024 3:33 PM CDT [facility] ABSOLUTE BASOPHILS 0.0 <0.3 thou/cu mm 01/21/2024 3:33 PM CDT [facility] Blood BLOOD SPECIMEN / Unknown Venipuncture / Unknown 01/21/2024 3:26 PM CDT 01/21/2024 3:26 PM CDT Taylor HASTINGS HEMATOLOGY Performing Organization Address City/[facility]/ZIP Co de Phone Number [facility] [address] [place] [address], * (ABNORMAL) LIPID PANEL W REFLEX MEASURED LDL (01/21/2024 3:26 PM CDT) CHOLESTEROL,TOTAL 142 100 - 199 mg/dL 01/22/2024 4:06 AM CDT [facility] Comment: Cholesterol, Total Reference Ranges Desirable <200 mg/dL Borderline 200-239 mg/dL High >=240 mg/dL TRIGLYCERIDES 157(H) <150 mg/dL 01/22/2024 4:06 AM CDT [facility] HDL CHOLESTEROL 39(L) >40 mg/dL 4:06 AM T [facility] NON-HDL CHOLESTEROL 103 <145 mg/dl 01/22/2024 4:06 AM T [facility] CHOL/HDL RATIO 3.64 <4.50 01/22/2024 4:06 AM CDT [facility] LDL CHOLESTEROL 72 <=130 mg/dL 01/22/2024 4:06 AM T [facility] VLDL CHOLESTEROL 31(H) <=30 mg/dL 01/22/2024 4:06 AM CDT [facility] PROVIDER ORDERED STATUS RANDOM 01/22/2024 4:06 AM CDT [facility] Blood BLOOD SPECIMEN / Unknown Venipuncture / Unknown 01/21/2024 3:26 PM CDT 01/21/2024 3:26 PM CDT Taylor HASTINGS CHEMISTRY [facility] [address] [address], [place] * TSH (01/21/2024 3:26 PM CDT) TSH 0.84 0.27 - 4.20 uIU/mL 01/22/2024 4:06 AM CDT [facility] Blood BLOOD SPECIMEN / Unknown Venipuncture / Unknown 01/21/2024 3:26 PM CDT 01/21/2024 3:26 PM CDT Narrative [facility] - 01/22/2024 4:06 AM CDT In Adults, TSH values between 5.00 and 10.00 uIU/ml do not necessarily indicate the presence of Hypothyroidism. Correlation with clinical findings such as presence of goiter and/or Thyroperoxidase (TPO) Antibody may be helpful. For more information please refer to ROSS 2004; 291: 228-238. Taylor HASTINGS CHEMISTRY Performing Organization Address City/[facility]/ZIP Co de Phone Number [facility] [address] [place] [address], * FERRITIN (01/21/2024 3:26 PM CDT) FERRITIN 114.0 15.0 - 150.0 ng/mL 01/22/2024 4:06 AM CDT [facility] Blood BLOOD SPECIMEN / Unknown Venipuncture / Unknown 01/21/2024 3:26 PM CDT 01/21/2024 3:26 PM CDT Taylor HASTINGS CHEMISTRY Performing Organization Address [facility] Co de Phone Number [facility] [address] [address], [place] * LACERATION REPAIR (01/19/2024 4:17 PM CDT) Narrative Wallace Bunn PA - 01/19/2024 4:17 PM CDT Wallace Bunn PA ? 01/19/2024 ??4:18 PM LACERATION REPAIR Date/Time: 01/19/2024 4:17 PM Performed by: Wallace Bunn PA Authorized by: Wallace Bunn PA ?? Consent: ??Consent obtained: ??Verbal ??Consent given by: ??Patient and guardian ??Risks discussed: ??Infection, pain, poor cosmetic result and poor wound healing [place] protocol: ??Procedure explained and questions answered to patient or proxy's satisfaction: yes ?Required blood products, implants, devices, and special equipment available: yes ?Immediately prior to procedure, a time out was called: yes ?Patient identity confirmed: ??Arm band Anesthesia: ??Anesthesia method: ??Local infiltration ??Local anesthetic: ??Lidocaine 2% WITH epi Laceration details: ??Location: ??Shoulder/arm ??Shoulder/arm location: ??L elbow ??Length (cm): ??1.8 ??Depth (mm): ??4 Pre-procedure details: ??Preparation: ??Patient was prepped and draped in usual sterile fashion Exploration: ??Limited defect created (wound extended): no ?Hemostasis achieved with: ??Direct pressure and epinephrine ??Contaminated: no ?? Treatment: ??Area cleansed with: ??Povidone-iodine and saline (Wound cleanser) ??Amount of cleaning: ??Extensive ??Irrigation solution: ??Sterile saline ??Irrigation volume: ??500 ??Irrigation method: ??Pressure wash ??Debridement: ??None ??Undermining: ??None ??Scar revision: no ?? Skin repair: ??Repair method: ??Sutures ??Suture size: ??4-0 ??Suture material: ??Nylon ??Suture technique: ??Simple interrupted ??Number of sutures: ??3 Approximation: ??Approximation: ??Loose Repair type: ??Repair type: ??Simple Post-procedure details: ??Dressing: ??Antibiotic ointment and sterile dressing ??Procedure completion: ??Tolerated well, no immediate complications Wallace HASTINGS PROCEDURE O RD * LACERATION REPAIR (01/19/2024 4:14 PM CDT) Narrative Wallace Bunn PA - 01/19/2024 4:14 PM CDT Wallace Bunn PA ? 01/19/2024 ??4:18 PM LACERATION REPAIR Date/Time: 01/19/2024 4:14 PM Performed by: Wallace Bunn PA Authorized by: Wallace Bunn PA ?? Consent: ??Consent obtained: ??Verbal ??Consent given by: ??Patient ??Risks, benefits, and alternatives were discussed: yes ?Risks discussed: ??Pain, poor cosmetic result, poor wound healing and infection [place] protocol: ??Procedure explained and questions answered to patient or proxy's satisfaction: yes ?Required blood products, implants, devices, and special equipment available: yes ?Patient identity confirmed: ??Arm band Anesthesia: ??Anesthesia method: ??Local infiltration ??Local anesthetic: ??Lidocaine 2% WITH epi Laceration details: ??Location: ??Shoulder/arm ??Shoulder/arm location: ??L elbow ??Length (cm): ??1.2 ??Depth (mm): ??4 Pre-procedure details: ??Preparation: ??Patient was prepped and draped in usual sterile fashion Exploration: ??Limited defect created (wound extended): no ?Imaging outcome: foreign body not noted ?Contaminated: no ?? Treatment: ??Area cleansed with: ??Povidone-iodine and saline (Wound cleanser) ??Amount of cleaning: ??Extensive ??Irrigation solution: ??Sterile saline ??Irrigation volume: ??500 ??Irrigation method: ??Pressure wash ??Debridement: ??None ??Undermining: ??None Skin repair: ??Repair method: ??Sutures ??Suture size: ??4-0 ??Suture material: ??Nylon ??Suture technique: ??Simple interrupted ??Number of sutures: ??2 Approximation: ??Approximation: ??Loose Repair type: ??Repair type: ??Simple Post-procedure details: ??Dressing: ??Antibiotic ointment and sterile dressing ??Procedure completion: ??Tolerated well, no immediate complications Wallace HASTINGS PROCEDURE O RD * ANTI HIV 1/2 (05/11/2023 2:04 PM BUSINESS DEVELOPMENT COORDINATOR) Pathologist [facility] HIV-1/HIV-2 SCREEN Non-Reacti ve Non-Reacti ve 05/11/2023 10:54 PM BUSINESS DEVELOPMENT COORDINATOR [facility] Comment:HIV-1 p24 and HIV-1/ HIV-2 Ab Not Detected. Blood BLOOD SPECIMEN / Unknown Venipuncture / Unknown 05/11/2023 2:04 PM BUSINESS DEVELOPMENT COORDINATOR 05/11/2023 2:05 PM BUSINESS DEVELOPMENT COORDINATOR Taylor HASTINGS SEND OUTS [facility] [address] [place] [address], * EXPERIENCE DESIGN DIRECTOR THIN PREP PAP SCREEN IMAGED (08/08/2022 12:00 PM BUSINESS DEVELOPMENT COORDINATOR) [facility] Case Report Gynecologic Cytology Report ? Case: [id number] ? Authorizing Provider: ??Jenn Wen PA-C ?Collected: ? 08/08/2022 1200 ? Ordering Location: ? [facility] ?Received: ?08/12/2022 1326 ? First Screen: ?Ayleen Johnson ? Specimen: ?EXPERIENCE DESIGN DIRECTOR ThinPrep Vial Screening, Cervical ? 09/01/2022 7:41 PM [facility] INTERPRETATION/ RESULT NEGATIVE FOR INTRAEPITHELIAL LESION OR MALIGNANCY (NIL) (none) 09/01/2022 7:41 PM [facility] IMEN ADEQUACY Satisfactory for evaluation Endocervical component present 09/01/2022 7:41 PM [facility] HPV REQUEST HPV and PAP 09/01/2022 7:41 PM BUSINESS DEVELOPMENT COORDINATOR [facility] Date of LMP 09/01/2022 7:41 PM BUSINESS DEVELOPMENT COORDINATOR [facility] Comment:unknown Last Pap Date 02/28/2020 09/01/2022 7:41 PM BUSINESS DEVELOPMENT COORDINATOR [facility] Last Pap Result NIL 7:41 PM [facility] Abnormal Pap or [place] Bx in last 5 years No 09/01/2022 7:41 PM BUSINESS DEVELOPMENT COORDINATOR [facility] Menstrual Status Postmenopausal 09/01/2022 7:41 PM [facility] [place] Bx Done Today No 09/01/2022 7:41 PM BUSINESS DEVELOPMENT COORDINATOR [facility] Additional Information 09/01/2022 7:41 PM [facility] Comment: Interpreted at [facility] - [address], [place] [address] Automated Review Successful 09/01/2022 7:41 PM [facility] Comment:Specimen processed s uccessfully by automated needle valve operator device, ThinPrep Imaging System, [employer] ANCILLARY TESTING EXPERIENCE DESIGN DIRECTOR HPV Ordered, Please see separate report 09/01/2022 7:41 PM [facility] Note The pap test is a screening technique, not a diagnostic procedure. It is used primarily to screen for squamous cancers and precursor lesions. Published studies have shown that it is subject to both false negative and false positive results. The pap test should not be used as the sole means to diagnose or exclude pre-malignant and malignant lesions. 09/01/2022 7:41 PM BUSINESS DEVELOPMENT COORDINATOR [facility] Other (Cervical) 08/08/2022 12:00 PM BUSINESS DEVELOPMENT COORDINATOR 08/12/2022 1:26 PM BUSINESS DEVELOPMENT COORDINATOR Jenn Wen PA-C PATHOLOGY/CYTOLOGY [facility] [address] [place] [address], * ANTI HCV (07/11/2021 11:25 AM BUSINESS DEVELOPMENT COORDINATOR) HEPATITIS C ANTIBODY Non-React sofia Non-React sofia 07/15/2021 3:53 PM BUSINESS DEVELOPMENT COORDINATOR [facility] Comment:Antibodies to HCV no t detected; does not exclude the possibility of exposure to HCV. Blood BLOOD SPECIMEN / Unknown Venipuncture / Unknown 07/11/2021 11:25 AM BUSINESS DEVELOPMENT COORDINATOR 07/11/2021 11:27 AM BUSINESS DEVELOPMENT COORDINATOR Taylor Blancas PA [facility] [address] [place] [address], from Last 3 Months or Most Recently Relevant to Health Maintenance Advance Directives * Full Code (Latest Code Status on File) Date Activated Date Inactivated Comments 12/21/2019 1:29 AM 01/02/2020 3:18 PM Question Answer Comments Code Status Discussion: Not Discussed * Full Code Date Activated Date Inactivated Comments 09/27/2019 10:53 PM 10/13/2019 11:59 AM Care Teams Maintenance Repairer Relationship Specialty Start Date End Date Taylor Blancas PA [address] [place] [address] PCP - General Physician Flat Examiner 05/11/23
== END 2024-01-26 11:16 | disposition home or self-care (01) ==
LOC: NFLDREF 11:16
PROVIDERS: PCP Family Medicine; Visit Provider Physician Assistant
DX: Z01.419 Encounter for gynecological examination (general) (routine) without abnormal findings (principal); E78.5 Hyperlipidemia, unspecified; E66.9 Obesity, unspecified; Z13.29 Encounter for screening for other suspected endocrine disorder; Z13.6 Encounter for screening for cardiovascular disorders; Z13.1 Encounter for screening for diabetes mellitus
CPT/HCPCS: 80061; 82947; 84443

== ENCOUNTER 2024-11-17 12:44 | Outpatient (CLI) | payer MEDICAID, SELFPAY ==
--- NOTE | 2024-11-17 13:28 | P.ANES_ITS ---
Anesthesia Charges Start Date/Time Anesthesia Start Date: 11/17/24 Anesthesia Start Time: 13:05 Stop Date/Time Anesthesia Stop Date: 11/17/24 Anesthesia Stop Time: 13:22 Coding CPT Codes CPT Codes: ANES UPR GI NDSC PX NOS - 60883 ([id number]) P2 - PATIENT W/MILD SYST DISEASE, QK - HEAD OF COMMISSION DEPARTMENT 2-4 CNCRNT ANES PROC, QX - DIRECTOR CORPORATE SALES SVC W/ MD MED DIRECTION
--- NOTE | 2024-11-17 13:28 | W.ANESCHARGE ---
Anesthesia Charges Start Date/Time Anesthesia Start Date: 11/17/24 Anesthesia Start Time: 13:05 Stop Date/Time Anesthesia Stop Date: 11/17/24 Anesthesia Stop Time: 13:22 Coding CPT Codes CPT Codes: ANES UPR GI NDSC PX NOS - [id number] ([id number]) P2 - PATIENT W/MILD SYST DISEASE, QK - TRUCK SERVICE TECHNICIAN 2-4 CNCRNT ANES PROC, QX - DIANETICIST SVC W/ MD MED DIRECTION
--- NOTE | 2024-11-17 13:29 | P.ANES_ITS ---
Anesthesia Charges Start Date/Time Anesthesia Start Date: 11/17/24 Anesthesia Start Time: 13:05 Stop Date/Time Anesthesia Stop Date: 11/17/24 Anesthesia Stop Time: 13:22 Coding CPT Codes CPT Codes: ANES UPR GI NDSC PX NOS - 51761 ([id number]) P2 - PATIENT W/MILD SYST DISEASE, QK - CHARTER COACH DRIVER 2-4 CNCRNT ANES PROC, QX - ETL MANAGER SVC W/ MD MED DIRECTION
--- NOTE | 2024-11-17 13:29 | W.ANESCHARGE ---
Anesthesia Charges Start Date/Time Anesthesia Start Date: 11/17/24 Anesthesia Start Time: 13:05 Stop Date/Time Anesthesia Stop Date: 11/17/24 Anesthesia Stop Time: 13:22 Coding CPT Codes CPT Codes: ANES UPR GI NDSC PX NOS - 15311 ([id number]) P2 - PATIENT W/MILD SYST DISEASE, QK - TOOL PLANER SET UP OPERATOR 2-4 CNCRNT ANES PROC, QX - RETAIL BUYER SVC W/ MD MED DIRECTION
== END 2024-11-17 12:45 | disposition home or self-care (01) ==
LOC: OP CLINIC 12:46
PROVIDERS: PCP Family Medicine; Visit Provider Surgery
DX: R13.10 Dysphagia, unspecified (principal); K21.9 Gastro-esophageal reflux disease without esophagitis; K22.89 Other specified disease of esophagus
CPT/HCPCS: 00731; 43239; 88305; J2704; J3490

== ENCOUNTER 2025-06-20 14:41 | Outpatient (CLI) | payer BC, SELFPAY | END 2025-06-20 14:42 | disposition home or self-care (01) | LOC: INJ CL 14:42 | PROVIDERS: PCP Family Medicine; Visit Provider Family Medicine | DX: M17.12 Unilateral primary osteoarthritis, left knee (principal); M25.562 Pain in left knee | CPT/HCPCS: 64454 ==